=== PATIENT | female | born 1940 | race Caucasian/White ===

== ENCOUNTER → 2017-11-26 | Outpatient (REF) | payer MEDICARE, SELFPAY | LOC: LAB 18:10 | PROVIDERS: Visit Provider Physician Assistant | DX: I10 Essential (primary) hypertension (principal); E78.5 Hyperlipidemia, unspecified; E03.9 Hypothyroidism, unspecified | CPT/HCPCS: 80053; 80061; 84443; 85025 ==

== ENCOUNTER → 2017-11-28 | Outpatient (REF) | payer MEDICARE, SELFPAY | LOC: LAB 16:21 | PROVIDERS: Family Provider Physician Assistant; PCP Physician Assistant; Visit Provider Physician Assistant | DX: R73.01 Impaired fasting glucose (principal) | CPT/HCPCS: 83036 ==

== ENCOUNTER → 2018-04-08 13:09 | Outpatient (CLI) | payer MEDICARE, SELFPAY ==
[2018-04-08 14:01] LABS: Hemoglobin A1C% w Est Avg Glu 6.4 % (4.0-6.0)
== END ==
PROVIDERS: Family Provider Physician Assistant; PCP Physician Assistant; Visit Provider Physician Assistant
DX: R73.01 Impaired fasting glucose (principal)
CPT/HCPCS: 36415; 83036

== ENCOUNTER → 2020-06-25 09:21 | Outpatient (CLI) | payer MEDICARE, SELFPAY ==
[2020-06-25 11:17] LABS: COVID19 -Nasal RAPID Negative (Negative)
== END ==
PROVIDERS: Family Provider Physician Assistant; PCP Physician Assistant; Visit Provider Physician Assistant
DX: Z11.59 Encounter for screening for other viral diseases (principal)
CPT/HCPCS: 87635

== ENCOUNTER 2020-06-28 07:27 | Day surgery (SDC) | payer MEDICARE, SELFPAY ==
[2020-06-28] MEDS: PROPARACAINE 0.5% OPHTH SOL 2 DROPS EYE-OP (07:43)
[2020-06-28] MEDS: CATARACT EYE COMPOUND (10 DROPS/SYRINGE) 3 DROPS EYE-OP (07:44)
[2020-06-28 07:46] VITALS: BP 152/77; PULSE 79; RESP 16; TEMP 37.3; O2SAT 97; BMI 35.4
--- NOTE | 2020-06-28 09:03 | P.OP_ITS ---
Operative Date/Time/Diagnoses Pre-op diagnosis: Nuclear Cataract Left eye Post-op diagnosis: same Procedure & Clinicians Same procedure as scheduled: Yes Surgeon: Reynaldo Villegas Anesthesia Type: MAC +/- and Sedation Operative Notes Procedure in detail: Patient brought to the operating suite. Tetracaine drops placed in the left eye. Patient was prepped and draped in sterile manner. Wire lid speculum was placed in the eye. Betadine drops were placed on the eye. This was irrigated. Lidocaine jelly was placed on the eye. A paracentesis port was created with a side-port blade. 0.1 mL 1% preservative free lidocaine was injected into the anterior chamber. The anterior chamber was deepened with viscoelastic. 2.6 mm keratome was used to create a temporal clear corneal incision. Cystotome and Utrata forceps were used to create continuous tear capsulorrhexis. Balanced salt solution was used to hydro dissect the nucleus. The phacoemulsification handpiece was inserted and the nucleus was removed using the stop and chop technique. The irrigation aspiration handpiece was inserted and the remaining cortex was removed. Anterior chamber was deepened with viscoe lastic. An Lema ZCB00 intraocular lens with a power of 21.5 was injected into the capsular bag. Irrigation aspiration handpiece was inserted and the remaining viscoelastic was removed. Incision was hydrated with balanced salt solution and found to be leak free with pressure with Weck-Hope sponges. 0.1 mL Vigamox injected anterior chamber. 0.3 mL Kenalog 10 mg was injected subconjunctivally. Lid speculum was removed. The patient left the operating room in excellent condition. Complications: none Post-operative Condition: stable Disposition: same day surgery
--- NOTE | 2020-06-28 09:03 | PM.PREOP ---
Pre-operative Note Interval Note History & Physical reviewed/Exam performed by Physician: Yes Changes to H&P: No
[2020-06-28] MEDS: PHENYLEPHRINE/LIDOCAINE VIAL (OR) 0.2 ML EYE-OP (09:17)
[2020-06-28] MEDS: MOXIFLOXACIN INJ 5 MG/ML VIAL EYE-OP (09:17)
[2020-06-28] MEDS: TRIAMCINOLONE 50 MG/5 ML VIAL INJ (09:18)
[2020-06-28] MEDS: TETRACAINE 0.5% OPHTH DROPS 4 ML 2 DROPS EYE-OP (09:18)
[2020-06-28] MEDS: BALANCED SALT IRRIG SOLN NO.2 500 ML, EPINEPHrine 1 MG IRR (09:18)
[2020-06-28] MEDS: LIDOCAINE JELLY 2% 5 ML 1 APPLIC TOP (09:18)
[2020-06-28] MEDS: CHONDROIDTIN/SOD HYALURONATE 1.05 ML SYRINGE INTRAOCULA (09:18)
[2020-06-28 09:40] VITALS: BP 137/73; PULSE 99; RESP 16; TEMP 36.9; O2SAT 98
== END 2020-06-28 09:55 | disposition home or self-care (01) ==
PROVIDERS: Family Provider Physician Assistant; PCP Physician Assistant; Referring Provider Physician Assistant; Visit Provider Ophthalmology
PROC: (CPT 66984; principal; 2020-06-28 09:15)
DX: H25.12 Age-related nuclear cataract, left eye (principal); E03.9 Hypothyroidism, unspecified; I10 Essential (primary) hypertension; E78.5 Hyperlipidemia, unspecified
CPT/HCPCS: 66984; J0171; J2250; J3010; J3301

== ENCOUNTER → 2020-07-09 09:02 | Outpatient (CLI) | payer MEDICARE, SELFPAY ==
[2020-07-09 09:40] LABS: COVID19 -Nasal RAPID Negative (Negative)
== END ==
PROVIDERS: Family Provider Physician Assistant; PCP Physician Assistant; Visit Provider Physician Assistant
DX: Z11.59 Encounter for screening for other viral diseases (principal)
CPT/HCPCS: 87635

== ENCOUNTER 2020-07-12 06:55 | Day surgery (SDC) | payer MEDICARE, SELFPAY ==
[2020-07-12] MEDS: PROPARACAINE 0.5% OPHTH SOL 2 DROPS EYE-OP (07:39)
[2020-07-12] MEDS: CATARACT EYE COMPOUND (10 DROPS/SYRINGE) 3 DROPS EYE-OP (07:39)
[2020-07-12 07:41] VITALS: BP 149/69; PULSE 78; RESP 17; TEMP 37.3; O2SAT 99
--- NOTE | 2020-07-12 08:06 | PM.PREOP ---
Pre-operative Note Interval Note History & Physical reviewed/Exam performed by Physician: Yes Changes to H&P: No
--- NOTE | 2020-07-12 08:06 | PM.OP.1 ---
Operative Date/Time/Diagnoses Pre-op diagnosis: Nuclear cataract right eye Procedure & Clinicians Procedure: Cataract Surgery Same procedure as scheduled: Yes Surgeon: Reynaldo Villegas Anesthesia Type: MAC +/- and Sedation Operative Notes Procedure in detail: Patient brought to the operating suite. Tetracaine drops placed in the right eye. Patient was prepped and draped in sterile manner. Wire lid speculum was placed in the eye. Betadine drops were placed on the eye. This was irrigated. Lidocaine jelly was placed on the eye. A paracentesis port was created with a side-port blade. 0.1 mL 1% preservative free lidocaine was injected into the anterior chamber. The anterior chamber was deepened with viscoelastic. 2.6 mm keratome was used to create a temporal clear corneal incision. Cystotome and Utrata forceps were used to create continuous tear capsulorrhexis. Balanced salt solution was used to hydro dissect the nucleus. The phacoemulsification handpiece was inserted and the nucleus was removed using the stop and chop technique. The irrigation aspiration handpiece was inserted and the remaining cortex was removed. Anterior chamber was deepened with viscoelastic. An Lema ZCB00 intraocular lens with a power of 23.0 was injected into the capsular bag. Irrigation aspiration handpiece was inserted and the remaining viscoelastic was removed. Incision was hydrated with balanced salt solution and found to be leak free with pressure with Weck-Hope sponges. 0.1 mL Vigamox injected anterior chamber. 0.3 mL Kenalog 10 mg was injected subconjunctivally. Lid speculum was removed. The patient left the operating room in excellent condition. Complications: none Post-operative Condition: stable Disposition: same day surgery
[2020-07-12] MEDS: CHONDROIDTIN/SOD HYALURONATE 1.05 ML SYRINGE INTRAOCULA (08:24)
[2020-07-12] MEDS: LIDOCAINE JELLY 2% 5 ML 1 APPLIC TOP (08:24)
[2020-07-12] MEDS: PHENYLEPHRINE/LIDOCAINE VIAL (OR) 0.2 ML EYE-OP (08:25)
[2020-07-12] MEDS: TETRACAINE 0.5% OPHTH DROPS 4 ML 2 DROPS EYE-OP (08:25)
[2020-07-12] MEDS: MOXIFLOXACIN INJ 5 MG/ML VIAL EYE-OP (08:25)
[2020-07-12] MEDS: TRIAMCINOLONE 50 MG/5 ML VIAL INJ (08:25)
[2020-07-12] MEDS: BALANCED SALT IRRIG SOLN NO.2 500 ML, EPINEPHrine 1 MG IRR (08:26)
[2020-07-12 08:45] VITALS: BP 129/64; PULSE 75; RESP 16; TEMP 37; O2SAT 95
== END 2020-07-12 09:01 | disposition home or self-care (01) ==
PROVIDERS: Family Provider Physician Assistant; PCP Physician Assistant; Referring Provider Physician Assistant; Visit Provider Ophthalmology
PROC: (CPT 66984; principal; 2020-07-12 08:45)
DX: H25.11 Age-related nuclear cataract, right eye (principal); I10 Essential (primary) hypertension; E05.00 Thyrotoxicosis with diffuse goiter without thyrotoxic crisis or storm; E78.5 Hyperlipidemia, unspecified
CPT/HCPCS: 66984; J0171; J2250; J3010; J3301

== ENCOUNTER → 2020-09-29 14:37 | Outpatient (ROUT) | payer OTHER, SELFPAY ==
[2020-09-29 15:21] LABS: Add Manual Diff / Slide Review NO; Basophils Absolute Auto 100 /uL (0-100); Eosinophils Absolute Auto 100 /uL (0-450); Eosinophils Percent Auto 1.4 % (2-4); Hematocrit 42.1 % (36-46); Hemoglobin 13.9 g/dL (12.0-16.0); Lymphocytes Absolute Auto 1500 /uL (1100-4500); Lymphocytes Percent Auto 25.9 % (25-40); Mean Corpuscular HGB Conc 32.9 % (30-36); Mean Corpuscular Hemoglobin 29.1 PG (26-34); Mean Corpuscular Volume 88.4 fL (80-100); Monocytes Absolute Auto 400 /uL (0-900); Monocytes Percent Auto 7.3 % (3-14); Neutrophils Absolute Auto 3600 /uL (1500-7000); Neutrophils Percent Auto 64.4 % (50-75); Platelet Count 159 X10^3/uL (150-400); Red Blood Cell Count 4.77 X10^6/uL (4.0-5.2); Red Cell Distribution Width 13.9 % (11.6-14.8); White Blood Cell Count 5.7 X10^3/uL (4.5-11.0)
[2020-09-29 15:51] LABS: Alanine Aminotransferase 18 IU/L (<35); Albumin Globulin Ratio 1.2 (1.0-2.8); Alkaline Phosphatase 99 U/L (38-126); Aspartate Aminotransferase 19 IU/L (14-36); BUN Creatinine Ratio 19.7 (6-22); Bilirubin Total 0.8 mg/dL (0.2-1.3); Blood Urea Nitrogen 12 mg/dL (7-17); Calcium 9.8 mg/dL (8.4-10.2); Carbon Dioxide 29 mmol/L (22-32); Chloride 107 mmol/L (98-107); Cholesterol 137 mg/dL (140-199); Estimated Glomerular Filt Rate > 60.0 mL/min (>60); Globulin 3.3 g/dL (1.7-4.1); Glucose 111 mg/dL (80-110); HDL Cholesterol 61 mg/dL (40-60); HEMOLYSIS < 15 (0-50); LDL Cholesterol Calculated 60 mg/dL (<100); Potassium 3.9 mmol/L (3.4-5.1); Sodium 139 mmol/L (137-145); Total Protein 7.3 g/dL (6.3-8.2); Triglycerides 81 mg/dL (35-150)
[2020-09-29 15:56] LABS: Hemoglobin A1C% w Est Avg Glu 6.6 % (4.0-6.0)
[2020-09-29 16:20] LABS: TSH w/ Reflex to FT4 0.14 uIU/mL (0.47-4.68)
[2020-09-29 16:54] LABS: Free T4, Direct Thyroxine 2.25 ng/dL (0.78-2.19)
== END ==
PROVIDERS: Family Provider Physician Assistant; PCP Physician Assistant; Visit Provider Physician Assistant
DX: I10 Essential (primary) hypertension (principal); E78.2 Mixed hyperlipidemia; E03.9 Hypothyroidism, unspecified; R73.01 Impaired fasting glucose
CPT/HCPCS: 80053; 80061; 83036; 84439; 84443; 85025

== ENCOUNTER → 2024-06-30 11:52 | Outpatient (CLI) | payer MEDICARE, SELFPAY ==
--- NOTE | 2024-06-30 11:55 | DI.RAD.S_ITS ---
PROCEDURE: XR KNEE RT 4V INDICATIONS: Pain in right knee TECHNIQUE: 3 views of the knee were acquired. COMPARISON: None. FINDINGS: Bones: No acute fracture or dislocation. There is mild femorotibial joint space narrowing. There are small intercondylar osteophytes. Soft tissues: No joint effusion. No suspicious soft tissue calcifications. IMPRESSION: Mild osteoarthritis. No acute radiographic findings. Dictated by: Tiara Ascencio M.D. on 06/30/2024 at 14:16 Approved by: Tiara Ascencio M.D. on 06/30/2024 at 14:16
== END ==
LOC: RAD 11:54
PROVIDERS: Family Provider Physician Assistant; PCP Physician Assistant; Referring Provider Internal Medicine; Visit Provider Internal Medicine
DX: M17.11 Unilateral primary osteoarthritis, right knee (principal); M25.561 Pain in right knee
CPT/HCPCS: 73564

== ENCOUNTER → 2025-05-02 14:46 | Outpatient (CLI) | payer MEDICARE, SELFPAY ==
[2025-05-02 15:31] LABS: Influenza A - CEPHEID Flu A NEGATIVE (NEGATIVE); Influenza B - CEPHEID Flu B NEGATIVE (NEGATIVE)
[2025-05-02 15:35] LABS: COVID-19 CEPHEID 4-PLEX PCR POSITIVE (Negative)
== END ==
PROVIDERS: PCP Physician Assistant; Visit Provider Chiropractor
DX: R05.1 Acute cough (principal)
CPT/HCPCS: 87637

== ENCOUNTER 2025-05-03 10:03 | Inpatient (IN) | payer MEDICARE, SELFPAY ==
[2025-05-03] VITALS (27 sets, daily range): BP systolic 98–169; BP diastolic 55–86; PULSE 91–118; RESP 16–51; TEMP 36.8–37.4; O2SAT 87–95; BMI 44.9
--- NOTE | 2025-05-03 10:19 | DI.RAD.S_ITS ---
PROCEDURE: XR CHEST 1V INDICATIONS: Shortness of breath TECHNIQUE: One view of the chest was acquired. COMPARISON: None. FINDINGS: Surgical changes and devices: None. Lungs and pleura: Lungs are clear. No pleural effusions or pneumothorax. Mediastinum: Mediastinal contours appear normal. Heart size is normal. Bones and chest wall: No suspicious bony lesions. Overlying soft tissues appear unremarkable. IMPRESSION: No acute pulmonary process. Dictated by: Sary Cavazos M.D. on 05/03/2025 at 10:57 Approved by: Sary Cavazos M.D. on 05/03/2025 at 10:57
--- NOTE | 2025-05-03 10:30 | EKG_ITS ---
[address] [address] Test Date: 2025-05-03 Pat Name: Hortencia Britt Department: Room: Gender: Female Columnist: CELESTINA : 1940 Requested By: Order Number: [id number] Reading MD: Cedrick Nguyen Measurements Intervals [place] Rate: 116 P: [place]: 176 QRS: -32 QRSD: 144 T: 117 QT: 360 QTc: 500 Interpretive Statements Sinus tachycardia Left axis deviation Left bundle branch block Electronically Signed On 05-05-2025 8:06:34 PDT by Cedrick Nguyen
--- NOTE | 2025-05-03 10:39 | ED.SOB ---
HPI - SOB/Dyspnea General Chief Complaint: Arrhythmia/Palpitations Stated Complaint: COVID + congested Time Seen by Provider: 05/03/25 10:26 Source: patient Mode of arrival: Ambulatory Limitations: no limitations History of Present Illness HPI Narrative: This is an 84-year-old female who arrives by private vehicle. The patient is concerned because she tested positive for COVID yesterday. This occurred at urgent care visit, I reviewed that note. She says she has not slept all night. She is short of breath and has a productive cough. She denies chest pain she has not noted fevers or body aches she is not vomiting. Patient has a history of hypertension and thyroid disease, says that she has a history of heart failure that was associated with thyroid disease. Patient unsure about whether or not she would want to be intubated on a short-term basis her respiratory disease and would like an attempt at resuscitation in the event of a cardiac arrest. She understands that if she has a successful resuscitation she has a high probability of being on a ventilator. Related Data Home Medications ?Medication ?Instructions ?Recorded ?Confirmed atorvastatin 10 mg tablet 10 mg PO BEDTIME 06/28/20 05/02/25 cholecalciferol (vitamin D3) 50 50 mcg PO DAILY 06/28/20 05/02/25 mcg (2,000 unit) tablet (Vitamin D3) levothyroxine 137 mcg tablet 137 mcg PO DAILY 06/28/20 05/02/25 lisinopril 5 mg tablet 5 mg PO BEDTIME 06/28/20 05/02/25 omega-3 fatty acids [Fish Oil] PO 05/02/25 05/02/25 Allergies Allergy/AdvReac Type Severity Reaction Status Date / Time No Known Drug Allergies Allergy Verified 05/02/25 14:40 Patient History Medical History (Updated 05/03/25 @ 14:00 by José Sanders MD) Congestive heart failure (CHF) Hypothyroid Hypercholesteremia Hypertension Surgical History (Updated 06/28/20 @ 07:40 by Marya White RN) H/O: hysterectomy Social History household members: spouse Smoking Status: Former smoker Smoking Status: Former smoker alcohol intake frequency: holidays/special occasions only Exam Narrative Exam Narrative: Vital signs are reviewed, the patient is tachycardic and hypoxemic as well as tachypneic. She appears to be dyspneic and has a moist cough she does speak in full sentences. Patient is fully alert oriented and remarkably sharp. Oral mucosa is moist neck is supple Lungs are rhonchorous throughout, I do not hear any wheezing Heart sounds are normal except for tachycardia Abdomen is soft and nontender Neurologically she is alert moving all 4 extremities fully oriented as above Initial Vital Signs Initial Vital Signs: Vital Signs Temperature 99.3 F 05/03/25 10:13 Pulse Rate 118 H 05/03/25 10:13 Respiratory Rate 26 H 05/03/25 10:13 Blood Pressure 160/67 H 05/03/25 10:13 Pulse Oximetry 89 L 05/03/25 10:13 Oxygen Delivery Method Room Air 05/03/25 10:13 Course Orders Ordered: ED Orders 05/03/25 10:19 XR chest 1V Stat EKG-12 Lead Stat Measure peak expiratory flow STAT RT Consult Eval and Treat STAT 05/03/25 10:36 VBG [Venous Blood Gas] STAT 05/03/25 10:43 BNP [NT-proBNP (BNP-Adult 18+)] Stat CBC Auto Diff [Complete Blood Count AUTO DIFF] Stat CMP [Comprehensive Metabolic Panel] Stat D Dimer Stat Lactate (Lactic Acid) Stat Procalcitonin Stat Prothrombin Time INR Stat Troponin I Stat 05/03/25 10:46 Venous Blood Gas Routine 05/03/25 11:00 Blood Culture Stat 05/03/25 11:54 CT angio chest PE protocol Stat Remdesivir 200 mg/ Sodium (Chloride) 250 mls @ 250 mls/hr IV NOW ONE Stop: 05/03/25 14:58 Discontinued Medications Dexamethasone (Dexamethasone 10 Mg/Ml Vial) 6 mg IV NOW ONE Stop: 05/03/25 13:55 Reevaluation(s) Reevaluation #1: Patient resting comfortably. Has an oxygen requirement. She is agreeable to admission Consultations Consultation #1: Discussed with hospitalist, Dr Mcneill, accepts admission Vital Signs Vital signs: Vital Signs - 8 hr 05/03/25 10:13 05/03/25 10:23 05/03/25 10:24 Temperature 99.3 F Pulse Rate 118 H 115 H Respiratory Rate 26 H Blood Pressure 160/67 H 143/69 H Pulse Oximetry 89 L 88 L Oxygen Delivery Method Room Air Fraction of Inspired Oxygen 05/03/25 10:30 05/03/25 10:30 05/03/25 11:00 Temperature Pulse Rate 116 H Respiratory Rate 30 H Blood Pressure 152/80 H 134/78 Pulse Oximetry 89 L Oxygen Delivery Method Fraction of Inspired Oxygen 05/03/25 11:00 05/03/25 11:18 05/03/25 11:30 Temperature Pulse Rate 105 H Respiratory Rate 24 Blood Pressure 128/63 Pulse Oximetry 87 L 90 L Oxygen Delivery Method Room Air Fraction of Inspired Oxygen 21 05/03/25 11:30 Temperature Pulse Rate 109 H Respiratory Rate Blood Pressure Pulse Oximetry 91 Oxygen Delivery Method Fraction of Inspired Oxygen MDM - SOB/Dyspnea Lab Data Lab results narrative: Mildly elevated glucose mild thrombocytopenia, normal procalcitonin normal lactic acid D-dimer is elevated this prompted a CT angio of the chest. 05/03/25 10:43 05/03/25 10:43 Labs: Lab Results 05/03/25 05/03/25 Range/Units 10:43 10:46 WBC 9.1 (4.5-11.0) X10^3/uL RBC 4.77 (4.0-5.2) X10^6/uL Hgb 14.1 (12.0-16.0) g/dL Hct 41.7 (36-46) % MCV 87.4 (80-100) fL MCH 29.6 (26-34) PG MCHC 33.9 (30-36) % RDW 13.7 (11.6-14.8) % Plt Count 116 L (150-400) X10^3/uL Neut % (Auto) 87.9 H (50-75) % Lymph % (Auto) 4.0 L (25-40) % [facility] % (Auto) 7.8 (3-14) % Eos % (Auto) 0.0 L (2-4) % Baso % (Auto) 0.3 (0-2) % Neut # (Auto) 8000 H (0986-8492) /uL Lymph # (Auto) 400 L (0589-3642) /uL [facility] # (Auto) 700 (0-900) /uL Eos # (Auto) 0 (0-450) /uL Baso # (Auto) 0 (0-100) /uL PT 11.9 (9.4-12.5) SECONDS INR 1.1 (0.9-1.3) D-Dimer 1823 H (<500) ng/ml VBG pH 7.44 H (7.33-7.43) VBG pCO2 34.2 L (45-50) mmHg VBG pO2 32 L (35-45) mmHg VBG HCO3 23 L (24-28) mmol/L VBG Total CO2 22 L (24-29) mmol/L VBG O2 Saturation 64 L (70-75) % VBG Base Excess -0.2 L (0-4) mmol/L Sodium 133 L (137-145) mmol/L Potassium 3.8 (3.4-5.1) mmol/L Chloride 103 (98-107) mmol/L Carbon Dioxide 19 L (22-32) mmol/L BUN 13 (7-17) mg/dL Creatinine 0.58 (0.52-1.04) mg/dL Estimated GFR > 60 (>60) mL/min BUN/Creatinine Ratio 22.4 H (6-22) Glucose 214 H (70-99) mg/dL Lactate 1.6 (0.7-2.1) mmol/L Calcium 9.4 (8.4-10.2) mg/dL Total Bilirubin 1.2 (0.2-1.3) mg/dL AST 26 (14-36) IU/L ALT 21 (<35) IU/L Alkaline Phosphatase 79 (38-126) U/L Troponin I < 0.012 (0.01-0.034) ng/mL NT-Pro-B Natriuret Pep 118 (<450) pg/mL Total Protein 7.7 (6.3-8.2) g/dL Albumin 4.3 (3.5-5.0) g/dL Globulin 3.4 (1.7-4.1) g/dL Albumin/Globulin Ratio 1.3 (1.0-2.8) Procalcitonin 0.169 (<0.5) ng/mL ABG Data ABG results: Venous blood gas reviewed, pH is 7.44 she is alkalotic with a low CO2, has hypoxic respiratory failure is not acidotic or hypercapnic Imaging Data Chest x-ray: My Impression: Independent review of portable chest, no focal infiltrate. CT scan - chest: My Impression: Independently reviewed CT chest, no pulmonary embolism, bilateral patchy airspace disease. Radiologist's Impression: [address] [address] [address] Scan Report Signed Patient: Hortencia Britt MR#: [id number] : 1940 Acct:[id number] Age/Sex: 84 / F Date of Service: 05/03/25 Loc: ED Accession Number: [id number] Procedure: CT angio chest PE protocol Ordering Provider: José Sanders MD PROCEDURE: CT ANGIO CHEST PE PROTOCOL INDICATIONS: hypoxemia elevated dimer TECHNIQUE: After the administration of intravenous contrast, 2 mm thick sections acquired from the pulmonary apices to the posterior costophrenic angles. 3-dimensional maximum intensity projection (MIP) coronal and sagittal reformats were then acquired through the thorax. For radiation dose reduction, the following was used: automated exposure control, adjustment of mA and/or kV according to patient size. COMPARISON: None. FINDINGS: Image quality: Diagnostic. Pulmonary arteries: Pulmonary arteries are normal in size, and demonstrate no intraluminal filling defects to suggest central pulmonary embolism. Moderate bilateral diffuse peribronchial thickening with patchy alveolar opacities in the bilateral lower lobes predominantly posterior, more than expected for expiratory result and subsegmental atelectasis. Bronchitis, viral infection, bronchopneumonia, asthma or other process should be considered. Follow-up is needed. Lnmg-ag-kigjutzv cardiomegaly with predominantly left atrial, left ventricular enlargement. Pulmonary venous congestion Moderately enlarged pulmonary artery outflow tract, right and left main pulmonary arteries suggests pulmonary arterial hypertension. No pericardial effusion. Lower Neck: Multiple mildly enlarged mediastinal, anterior tracheal, paratracheal, subcarinal and hilar lymph nodes the largest subcarinal measuring up to 1.1 cm short axis commonly reactive/inflammatory although pathologically enlarged nodes not excluded. Mild calcifications of the aortic arch and descending aorta. Mild nonspecific wall thickening of the stomach, some of which may be artifact from partial nondistention although gastritis or other process could be considered. Cholelithiasis with numerous calcified gallstones without CT evidence of cholecystitis. Thyroid: No thyroid nodules which require sonographic follow up, per consensus guidelines. IMPRESSION: No CT evidence of filling defect to suggest pulmonary embolism. Moderate peribronchial thickening and patchy opacities as discussed above. Follow-up is needed. Cardiomegaly and pulmonary venous congestion and pulmonary arterial hypertension. Dictated by: Noel Reyes M.D. on 05/03/2025 at 12:33 Approved by: Noel Reyes M.D. on 05/03/2025 at 12:39 ECG Data Attestation: I personally reviewed and interpreted this ECG as follows: (EKG shows sinus rhythm at 116. There is a left bundle-branch block. No acute ST segment changes. No old EKG available for comparison) MDM Narrative Medical decision making narrative: 84-year-old female presenting with dyspnea and cough in the setting of known COVID-19 acute infection. She is not hypotensive, she is not hypercapnic but does have an oxygen requirement which is new. D-dimer was elevated but CT angio was negative for pulmonary embolism. I considered but do not suspect bacterial infection, does not appear to be in acute heart failure. Patient was treated with remdesivir and dexamethasone and will be admitted to the hospitalist service Discharge Plan Departure Patient Disposition: Admitted As Inpatient Clinical Impression: COVID-19 virus infection Respiratory failure Qualifiers: Chronicity: acute Respiratory failure complication: hypoxia Qualified Code(s): J96.01 - Acute respiratory failure with hypoxia Admit Date/Time: 05/03/25 14:02
[2025-05-03 10:55] LABS: Add Manual Diff / Slide Review NO; Hematocrit 41.7 % (36-46); Hemoglobin 14.1 g/dL (12.0-16.0); Lymphocytes Absolute Auto 400 /uL (1100-4500); Mean Corpuscular HGB Conc 33.9 % (30-36); Mean Corpuscular Hemoglobin 29.6 PG (26-34); Mean Corpuscular Volume 87.4 fL (80-100); Platelet Count 116 X10^3/uL (150-400)
[2025-05-03 11:02] LABS: Base Excess VBG -0.2 mmol/L (0-4); HCO3 VBG 23 mmol/L (24-28); Oxygen Saturation VBG 64 % (70-75); PCO2 VBG 34.2 mmHg (45-50); PO2 VBG 32 mmHg (35-45); Total CO2 VBG 22 mmol/L (24-29); pH VBG 7.44 (7.33-7.43)
[2025-05-03 11:02] LABS: INR 1.1 (0.9-1.3); Prothrombin Time 11.9 SECONDS (9.4-12.5)
[2025-05-03 11:08] LABS: Alanine Aminotransferase 21 IU/L (<35); Albumin 4.3 g/dL (3.5-5.0); Albumin Globulin Ratio 1.3 (1.0-2.8); Alkaline Phosphatase 79 U/L (38-126); Blood Urea Nitrogen 13 mg/dL (7-17); Calcium 9.4 mg/dL (8.4-10.2); Carbon Dioxide 19 mmol/L (22-32); Chloride 103 mmol/L (98-107); Estimated Glomerular Filt Rate > 60 mL/min (>60); Globulin 3.4 g/dL (1.7-4.1); Glucose 214 mg/dL (70-99); HEMOLYSIS 36 (0-50); Lactate (Lactic Acid) 1.6 mmol/L (0.7-2.1); Potassium 3.8 mmol/L (3.4-5.1); Sodium 133 mmol/L (137-145); Total Protein 7.7 g/dL (6.3-8.2)
[2025-05-03 11:16] LABS: NT-proBNP (BNP-Adult 18+) 118 pg/mL (<450)
[2025-05-03 11:20] LABS: Troponin I < 0.012 ng/mL (0.01-0.034)
[2025-05-03 11:24] LABS: Procalcitonin 0.169 ng/mL (<0.5)
--- NOTE | 2025-05-03 11:54 | DI.CT.S_ITS ---
PROCEDURE: CT ANGIO CHEST PE PROTOCOL INDICATIONS: hypoxemia elevated dimer TECHNIQUE: After the administration of intravenous contrast, 2 mm thick sections acquired from the pulmonary apices to the posterior costophrenic angles. 3-dimensional maximum intensity projection (MIP) coronal and sagittal reformats were then acquired through the thorax. For radiation dose reduction, the following was used: automated exposure control, adjustment of mA and/or kV according to patient size. COMPARISON: None. FINDINGS: Image quality: Diagnostic. Pulmonary arteries: Pulmonary arteries are normal in size, and demonstrate no intraluminal filling defects to suggest central pulmonary embolism. Moderate bilateral diffuse peribronchial thickening with patchy alveolar opacities in the bilateral lower lobes predominantly posterior, more than expected for expiratory result and subsegmental atelectasis. Bronchitis, viral infection, bronchopneumonia, asthma or other process should be considered. Follow-up is needed. Bxln-bp-[id number] cardiomegaly with predominantly left atrial, left ventricular enlargement. Pulmonary venous congestion Moderately enlarged pulmonary artery outflow tract, right and left main pulmonary arteries suggests pulmonary arterial hypertension. No pericardial effusion. Lower Neck: Multiple mildly enlarged mediastinal, anterior tracheal, paratracheal, subcarinal and hilar lymph nodes the largest subcarinal measuring up to 1.1 cm short axis commonly reactive/inflammatory although pathologically enlarged nodes not excluded. Mild calcifications of the aortic arch and descending aorta. Mild nonspecific wall thickening of the stomach, some of which may be artifact from partial nondistention although gastritis or other process could be considered. Cholelithiasis with numerous calcified gallstones without CT evidence of cholecystitis. Thyroid: No thyroid nodules which require sonographic follow up, per consensus guidelines. IMPRESSION: No CT evidence of filling defect to suggest pulmonary embolism. Moderate peribronchial thickening and patchy opacities as discussed above. Follow-up is needed. Cardiomegaly and pulmonary venous congestion and pulmonary arterial hypertension. Dictated by: Noel Reyes M.D. on 05/03/2025 at 12:33 Approved by: Noel Reyes M.D. on 05/03/2025 at 12:39
[2025-05-03] MEDS: REMDESIVIR 200 MG in SODIUM CHLORIDE 0.9% 250 ML 250 MG IV (14:58)
--- NOTE | 2025-05-03 15:28 | CM.DANOTE ---
DCP Assessment Note: Pt is a 84yo female, resident [facility], is admitted for COVID+ and shortness of breath. Pt lives in a house with her . Pt's Primary Care Provider is Doris Dixon PA-C and insurance is [facility] Medicare. Reviewed chart and discussed with multidisciplinary team pt's medical status and initial discharge needs. Per Provider, pt to be admitted for O2 therapy and IV antibiotics. DCP met w/patient at bedside; introduced self and role. Patient was found in bed, alert and oriented, cooperative with assessment. Pt confirmed living situation and good support in and neighbors; states she is independent at baseline and is the primary caregiver for her . No O2 or DME use at baseline. Pt expressed preference in discharge home when cleared. Pt has no prior history of SNF Rehab or home health for herself, states her utilized the care of Valerie JUNIOR in the past. Pt does not anticipate needing any referrals after this admission. Pt states her friend/neighbor, Nellie, is available to transport at discharge and is also available to assist pt spouse while she is admitted. Plan: Acute care admission, anticipating dc home when medically cleared, pt friend to transport. CM team will follow closely for coordination of discharge plans. Blank Martinez [facility] Discharge Planning/Care Management CM Discharge Assessment Start: 05/03/25 14:10 Freq: Status: Active Protocol: Document 05/03/25 15:25 MW (Rec: 05/03/25 15:27 MW [id number]) Discharge Planning Assessment Assigned Discharge [facility] [employer] Provider Doris Dixon PA-C Insurance [facility] DPOA/Assigned Jesus Britt, Spouse Designee Name Contact Information [phone] Advance Directives? No Prior Living House Arrangements Comment [place] [facility] Members spouse Type of Drives own vehicle transporation used prior to admit Independent with ADL Yes 's Is patient alert and Yes oriented? Caregiver for Yes Another Discharge Plan Home Transportation Neighbor Nellie Arrangement Referrals Initiated None needed Review Status In Process Please Provide Date 05/03/25 Initial DC Assessment Was Performed Next Review Type Continued Stay Review
--- NOTE | 2025-05-03 16:31 | P.HP_ITS ---
History of Present Illness History of Present Illness Date Patient Seen: 05/03/25 Chief complaint: COVID + congested Narrative: Chief complaint: COVID pneumonia with shortness for breath hypoxia fatigue malaise and productive cough History of present illness: 82-year-old female began cough shortness for breath tested positive for COVID at the outpatient setting symptoms worsened she did not sleep all night came to the emergency room for evaluation. Findings in the emergency room significant for hypoxia 80s saturation on room air patient appearing ill diffuse pattern on chest x-ray and CT angio Venous blood gas 7.44/pCO2 34 patch PO2 32 basic metabolic unremarkable serologies for COVID positive for flu a and B and RSV are negative Review of systems: Prior to this episode no headache diplopia blurred vision No chest pain palpitations shortness for breath No nausea vomiting diarrhea constipation The paresthesia paresis No urinary symptom No Neurologic symptoms Physical exam: Elderly female appearing ill HEENT unremarkable Heart sounds distant no murmurs Lungs sounds distant with diffuse crackles Abdomen nontender nondistended Extremities no edema For objective laboratory and imaging please see the bottom of the note: Assessment and plan Acute hypoxic respiratory failure secondary to COVID pneumonia * we will start on standard Decadron 6 mg daily remdesivir * and ceftriaxone azithromycin for possible coinfection with bacterial community pathogens DVT prophylaxis: * Subcutaneous heparin Code status: * Full code blue Disposition: * Inpatient * Expect 3-4 days of hospitalization Time based billing: * 55 minutes were involved in the evaluation of this patient including direct patient evaluation [id number] physical examination review of objective laboratory and imaging data including review of images discussion with emergency provider and treatment team [facility] Medical History (Updated 05/03/25 @ 14:00 by José Sanders MD) Congestive heart failure (CHF) Hypothyroid Hypercholesteremia Hypertension Surgical History (Updated 06/28/20 @ 07:40 by Marya White RN) H/O: hysterectomy Social History household members: spouse Smoking Status: Former smoker Meds Home Medications and Allergies Home Medications ?Medication ?Instructions ?Recorded ?Confirmed ?Type atorvastatin 10 mg tablet 10 mg PO BEDTIME 06/28/20 History cholecalciferol (vitamin D3) 50 50 mcg PO DAILY 05/02/25 History mcg (2,000 unit) tablet (Vitamin D3) levothyroxine 137 mcg tablet 137 mcg PO DAILY 06/28/20 05/02/25 History lisinopril 5 mg tablet 5 mg PO BEDTIME 06/28/20 History omega-3 fatty acids [Fish Oil] PO 05/02/25 05/02/25 Hi story Allergies Allergy/AdvReac Type Severity Reaction Status Date / Time No Known Drug Allergies Allergy Verified 05/02/25 14:40 Exam Vital Signs (past 8 hours): - 05/03/25 10:13 05/03/25 10:23 05/03/25 10:24 Temperature 99.3 F Pulse Rate 118 H 115 H Respiratory Rate 26 H Blood Pressure 160/67 H 143/69 H Pulse Oximetry 89 L 88 L Oxygen Delivery Method Room Air Fraction of Inspired Oxygen 05/03/25 10:30 05/03/25 10:30 05/03/25 11:00 Temperature Pulse Rate 116 H Respiratory Rate 30 H Blood Pressure 152/80 H 134/78 Pulse Oximetry 89 L Oxygen Delivery Method Fraction of Inspired Oxygen 05/03/25 11:00 05/03/25 11:18 05/03/25 11:30 Temperature Pulse Rate 105 H Respiratory Rate 24 Blood Pressure 128/63 Pulse Oximetry 87 L 90 L Oxygen Delivery Method Room Air Fraction of Inspired Oxygen 21 05/03/25 11:30 Temperature Pulse Rate 109 H Respiratory Rate Blood Pressure Pulse Oximetry 91 Oxygen Delivery Method Fraction of Inspired Oxygen Fraction of Inspired Oxygen 21 SaO2/FiO2 Ratio 428 Oxygen Delivery Method Room Air Objective Labs 05/03/25 10:43 05/03/25 10:43 Labs: Laboratory Results - last 24 hr 05/03/25 05/03/25 10:43 10:46 WBC 9.1 RBC 4.77 Hgb 14.1 Hct 41.7 MCV 87.4 MCH 29.6 MCHC 33.9 RDW 13.7 Plt Count 116 L Neut % (Auto) 87.9 H Lymph % (Auto) 4.0 L Harlan % (Auto) 7.8 Eos % (Auto) 0.0 L Baso % (Auto) 0.3 Neut # (Auto) 8000 H Lymph # (Auto) 400 L [place]lan # (Auto) 700 Eos # (Auto) 0 Baso # (Auto) 0 PT 11.9 INR 1.1 D-Dimer 1823 H VBG pH 7.44 H VBG pCO2 34.2 L VBG pO2 32 L VBG HCO3 23 L VBG Total CO2 22 L VBG O2 Saturation 64 L VBG Base Excess -0.2 L Sodium 133 L Potassium 3.8 Chloride 103 Carbon Dioxide 19 L BUN 13 Creatinine 0.58 Estimated GFR > 60 BUN/Creatinine Ratio 22.4 H Glucose 214 H Lactate 1.6 Calcium 9.4 Total Bilirubin 1.2 AST 26 ALT 21 Alkaline Phosphatase 79 Troponin I < 0.012 NT-Pro-B Natriuret Pep 118 Total Protein 7.7 Albumin 4.3 Globulin 3.4 Albumin/Globulin Ratio 1.3 Procalcitonin 0.169 Assessment & Plan Time-Based Coding :: [TOTAL MINUTES] spent with patient and on the chart (including review of chart, obtaining history, exam, reviewing outside data, placing orders, documenting exam and treatment plan, and counseling patient) on [DATE].
[2025-05-03] MEDS: IBUPROFEN 400 MG TABLET PO (18:41)
[2025-05-03] MEDS: SODIUM CHLORIDE 0.9% 1,000 ML 100 ML IV (18:42)
[2025-05-03] MEDS: HEPARIN 5,000 UNIT/ML VIAL 5000 UNIT SUBCUT (21:10)
[2025-05-03] MEDS: ATORVASTATIN 20 MG TABLET 10 MG PO (21:10)
[2025-05-04] MEDS: SODIUM CHLORIDE 0.9% 1,000 ML 100 ML IV (04:24)
[2025-05-04 08:00] VITALS: BP 106/53; PULSE 76; RESP 20; TEMP 36.2; O2SAT 91
[2025-05-04] MEDS: LEVOTHYROXINE 137 MCG TABLET PO (08:10)
[2025-05-04] MEDS: AZITHROMYCIN 250 MG TABLET PO (09:09)
[2025-05-04] MEDS: CHOLECALCIFEROL (VITAMIN D3) 1,000 UNIT TABLET 2000 UNIT PO (09:09)
[2025-05-04] MEDS: HEPARIN 5,000 UNIT/ML VIAL 5000 UNIT SUBCUT ×2 (09:09→21:19)
--- NOTE | 2025-05-04 13:54 | P.PN_ITS ---
Subjective Subjective Date Patient Seen: 05/04/25 Interval history: Chief complaint: COVID pneumonia with shortness for breath hypoxia fatigue malaise and productive cough History of present illness: 05/03: 82-year-old female began cough shortness for breath tested positive for COVID at the outpatient setting symptoms worsened she did not sleep all night came to the emergency room for evaluation. Findings in the emergency room significant for hypoxia 80s saturation on room air patient appearing ill diffuse pattern on chest x-ray and CT angio Venous blood gas 7.44/pCO2 34 patch PO2 32 basic metabolic unremarkable serologies for COVID positive for flu a and B and RSV are negative Hospital course: 05/04: No fevers or chills overnight cough is improved feels a lot less fatigued less labored respirations Review of systems: No nausea vomiting diarrhea constipation The paresthesia paresis No urinary symptom No Neurologic symptoms Physical exam: Elderly female appearing much better HEENT unremarkable Heart sounds distant no murmurs Lungs sounds clear Abdomen nontender nondistended Extremities no edema For objective laboratory and imaging please see the bottom of the note: Assessment and plan Acute hypoxic respiratory failure secondary to COVID pneumonia * Improved significantly after starting Decadron 6 mg daily remdesivir * and ceftriaxone azithromycin for possible coinfection with bacterial community pathogens * If continues to improve can deescalate to oral and discharge tomorrow DVT prophylaxis: * Subcutaneous heparin Code status: * Full code blue Disposition: * Inpatient * Likely we will discharge tomorrow Time based billing: * 35 minutes were involved in the evaluation of this patient including direct patient evaluation [id number] physical examination review of objective laboratory and imaging data including review of images discussion with emergency provider and treatment team Exam Vital Signs (past 8 hours): - 05/04/25 07:00 05/04/25 08:00 Temperature 97.2 F L Pulse Rate 76 Respiratory Rate 20 Blood Pressure 106/53 L Pulse Oximetry 91 Oxygen Delivery Method Nasal Cannula Oxygen Flow Rate 4 Fraction of Inspired Oxygen 21 SaO2/FiO2 Ratio 428 Oxygen Delivery Method Nasal Cannula Oxygen Flow Rate 4 Objective Labs 05/03/25 10:43 05/03/25 10:43 [facility] Medical History (Updated 05/03/25 @ 14:00 by José Sanders MD) Congestive heart failure (CHF) Hypothyroid Hypercholesteremia Hypertension Surgical History (Updated 06/28/20 @ 07:40 by Marya White RN) H/O: hysterectomy Social History household members: spouse Smoking Status: Former smoker alcohol intake: never Assessment & Plan Time-Based Coding :: [TOTAL MINUTES] spent with patient and on the chart (including review of chart, obtaining history, exam, reviewing outside data, placing orders, documenting exam and treatment plan, and counseling patient) on [DATE].
--- NOTE | 2025-05-04 15:41 | CM.DPNOTE ---
DCP note BEADWORKER reviewed EMR per provider in morning rounds DC timeline unknown. of note: pt's spouse admitted to the floor for similar COVID concerns as well. Currently in [facility] 202. P: no new DCP needs identified at this time. anticipating dc home when medically cleared, pt friend to transport. CM team will follow closely for coordination of discharge plans. SUPA Fernandez
[2025-05-04] MEDS: REMDESIVIR 100 MG in SODIUM CHLORIDE 0.9% 250 ML 250 MG IV (16:00)
[2025-05-04 17:47] VITALS: TEMP 36.6; O2SAT 96
[2025-05-04 21:00] VITALS: BP 125/52; PULSE 84; RESP 18; TEMP 36.4; O2SAT 96
[2025-05-04 21:19] VITALS: BP 125/52
[2025-05-04] MEDS: ATORVASTATIN 20 MG TABLET 10 MG PO (21:19)
[2025-05-04] MEDS: IBUPROFEN 400 MG TABLET PO (21:35)
[2025-05-05] MEDS: LEVOTHYROXINE 137 MCG TABLET PO (06:03)
[2025-05-05] MEDS: IBUPROFEN 400 MG TABLET PO (06:05)
[2025-05-05 07:53] VITALS: BP 127/49; PULSE 73; RESP 20; TEMP 36.4; O2SAT 94
[2025-05-05] MEDS: CHOLECALCIFEROL (VITAMIN D3) 1,000 UNIT TABLET 2000 UNIT PO (09:10)
[2025-05-05] MEDS: AZITHROMYCIN 250 MG TABLET PO (09:11)
[2025-05-05] MEDS: HEPARIN 5,000 UNIT/ML VIAL 5000 UNIT SUBCUT (09:11)
--- NOTE | 2025-05-05 09:13 | P.DS_ITS ---
History of Present Illness History of Present Illness Chief complaint: COVID + congested Narrative: From H&P: COVID pneumonia with shortness for breath hypoxia fatigue malaise and productive cough History of present illness: 82-year-old female began cough shortness for breath tested positive for COVID at the outpatient setting symptoms worsened she did not sleep all night came to the emergency room for evaluation. Findings in the emergency room significant for hypoxia 80s saturation on room air patient appearing ill diffuse pattern on chest x-ray and CT angio Venous blood gas 7.44/pCO2 34 patch PO2 32 basic metabolic unremarkable serologies for COVID positive for flu a and B and RSV are negative Review of systems: Prior to this episode no headache diplopia blurred vision No chest pain palpitations shortness for breath No nausea vomiting diarrhea constipation The paresthesia paresis No urinary symptom No Neurologic symptoms Discharge Providers Provider Date of admission: 05/03/25 14:02 Discharge Date: 05/05/25 Primary care physician: Doris Dixon PA-C Consults: 05/03/25 18:26 Consult to HHA - Blood Donor Recruiter Supervisor Routine Comment: Blood Donor Recruiter Supervisor Consult needed for:: Other reason (Comment) 05/04/25 11:54 Consult to Pharmacy Routine Comment: high fall risk Discharge provider: Cedrick Nguyen MD Summary Hospital Course Discharge Diagnosis: 1. COVID pneumonia, improving. 2. Acute hypoxic respiratory failure, resolved. Hospital Course: She was admitted with hypoxic respiratory failure and COVID and treated with Decadron and remdesivir. She was able to titrate off from oxygen and did well the next morning ambulating around the room. She requested discharge home was felt to be stable for discharge. She was covered with antibiotics for possible secondary bacterial infection. Status at Discharge Cognitive/behavioral status at discharge: oriented Functional status at discharge: independent ambulation Overall status at discharge: patient is back to baseline Time Spent with Patient Time spent: Greater than 30 minutes Exam Vital Signs (past 8 hours): - 05/05/25 07:53 Temperature 97.5 F L Pulse Rate 73 Respiratory Rate 20 Blood Pressure 127/49 L Pulse Oximetry 94 Oxygen Flow Rate 0 Fraction of Inspired Oxygen 21 SaO2/FiO2 Ratio 428 Oxygen Delivery Method Nasal Cannula Oxygen Flow Rate 0 Narrative Exam Narrative: NAD, alert and oriented. Fluent speech. Lungs are clear, normal rate and effort. Heart is regular, no murmur gallop or rub. Abdomen is soft, non distended. Extremities are free of edema. Objective ECG Impression: Intervals [place] Rate: 116 P: [place]: 176 QRS: -32 QRSD: 144 T: 117 QT: 360 QTc: 500 Interpretive Statements Sinus tachycardia Left axis deviation Left bundle branch block Imaging Multiple studies: : Radiologist's impression: CXR: No acute pulmonary process. Chest CTA: No CT evidence of filling defect to suggest pulmonary embolism. Moderate peribronchial thickening and patchy opacities as discussed above. Follow-up is needed. Cardiomegaly and pulmonary venous congestion and pulmonary arterial hypertension. Labs 05/03/25 10:43 05/03/25 10:43 [facility] Medical History Congestive heart failure (CHF) Hypothyroid Hypercholesteremia Hypertension Surgical History H/O: hysterectomy Social History household members: spouse Smoking Status: Former smoker alcohol intake: never Discharge Assessment & Plan Assessment and Plan Assessment: 1. Covid pneumonia. Plan of Treatment: Discharge home with cefdinir for 4 more days as well as Decadron for 4 more days. She will follow up with PCP within the next 1 week but call ahead to let them know about her COVID infection. Discharge Plan Discharge Plan Patient Disposition: Home Provider Discharge Comment: Stable for discharge home, off oxygen. Discharge orders & Medications Prescriptions: New dexamethasone 6 mg tablet 6 mg PO DAILY Qty: 4 0RF cefdinir 300 mg capsule 300 mg PO BID Qty: 8 0RF Continued omega-3 fatty acids [Fish Oil] PO levothyroxine 137 mcg tablet 100 mcg PO DAILY atorvastatin 10 mg tablet 10 mg PO BEDTIME lisinopril 5 mg tablet 10 mg PO BEDTIME cholecalciferol (vitamin D3) [Vitamin D3] 50 mcg (2,000 unit) Tablet 50 mcg PO DAILY Follow up/Referrals: Doris Dixon PA-C [Primary Care Provider, Medical] Discharge Health Status Multidrug resistant organism: No MDRO Diet/Activity/Treatments Diet: Regular Skin/Wound/Dressing Care Report to your healthcare provider any signs of infection, such as:: chills, fever Visit Report/Discharge Packet Instructions: DI for COVID-19 (Suspected or Confirmed ) Stand Alone Forms: Patient Portal/API Discharge Data Primary Care Provider: Doris Dixon
--- NOTE | 2025-05-05 11:42 | PC.NURSE ---
Patient is A&Ox4. She maintains 02 sats upper 90's on RA. She is able to tolerate mobilizing the room. VSS, afebrile. MD at bedside evaluating patient and clears her for discharge home today. She acknowledges understanding of discharge medications and if fever, increased dyspnea, SOB to call care provider /return to ED. She is escorted via w/ch to private vehicle with her friends Nellie for discharge home today at 1025 a.m.
== END 2025-05-05 10:25 | disposition home or self-care (01) | DRG 177 ==
LOC: ED 14:00 → AC 14:03
PROVIDERS: Admitting Provider Internal Medicine; Emergency Provider Emergency Medicine; PCP Physician Assistant; Referring Provider Emergency Medicine; Visit Provider Internal Medicine
DX: U07.1 COVID-19 (principal); J12.82 Pneumonia due to coronavirus disease 2019; J96.01 Acute respiratory failure with hypoxia; E03.9 Hypothyroidism, unspecified; E78.00 Pure hypercholesterolemia, unspecified; I10 Essential (primary) hypertension; Z87.891 Personal history of nicotine dependence; Z79.890 Hormone replacement therapy
CPT/HCPCS: 36415; 71045; 71275; 80053; 82805; 83605; 83880; 84145; 84484; 85025; 85379; 85610; 87040; 87637; 93005; 96365; 96375; 99284; 99285; J0696; J1100; J1644; Q9967